=== PATIENT | female | born 1970 | race Caucasian/White ===

== ENCOUNTER 2019-01-23 17:55 | Emergency (ER) | payer SELFPAY ==
[2019-01-23] MEDS ORDERED: Fluorescein Opthalmic Strip ONE (18:09)
== END 2019-01-23 18:29 | disposition home or self-care (01) ==
LOC: BURERS 17:55
DX: H10.9 Unspecified conjunctivitis (principal); F17.210 Nicotine dependence, cigarettes, uncomplicated; F41.9 Anxiety disorder, unspecified
CPT/HCPCS: 99283